=== PATIENT | male | born 1990 | race African-American/Black ===

== ENCOUNTER 2017-01-03 00:03 | Emergency (ER) | payer SELFPAY ==
[2017-01-03 00:07] VITALS: BP 135/64; BMI 33.6
--- NOTE | 2017-01-03 00:43 | DR.GENAD ---
HPI - PCP Primary Care Physician: DIOR - HPI Comment HPI Comment: UPPER LEFT FIRST MOLAR BREAK SEVERAL WEEKS AGO. PAIN SINCE. SEVERE TODAY. FEVER AT HOME. PROBLEM CHEWING. TODAY, LEFT JAW PAIN AND SWELLING ALSO. - Complaint/Symptoms Chief Complaint Doctors Comments: TOOTHACHE TIMES ONE WEEK. Chief Complaint:: PT STATES HE HAS A BAD TOOTHACHE THAT HAS BEEN HURTING FOR A WHILE - Nurses notes reviewed Nurses Notes Review: Yes - Source History Provided: Patient - Mode of Arrival Mode of Arrival: Ambulatory - Timing Onset of Chief Complaint: 12/20/16 Came on: Suddenly - Duration Duration: Constant Duration: Days - Severity Severity: Moderate PMH - PMH Past Medical History: No Past Surgical History: No - Family History History of Family Medical Conditions: No Family Medical History: Diabetes Mellitus, Coronary Artery Disease, Hypertension - Social History Alcohol Use: None Do you use any recreational Drugs:: No Lives With: Family Lives Where: Home - infectious screening In the last 2 months have you had wt loss of >10#?: NO Have you had fever, night sweats or hemotysis?: No Have you traveled outside the country in the last 6 months?: No Isolation: Standard ROS - Review of Systems Constitutional: Fever (AT HOME) Eyes: No Symptoms Reported ENTM: Mouth Pain, Mouth Swelling (SWELLING LEFT UPPER ) Respiratoy: No Symptoms Reported Cardiovascular: No Symptoms Reported Gastrointestinal/Abdominal: No Symptoms Reported Genitourinary: No Symptoms Reported Neurological: No Symptoms Reported Musculoskeletal: No Symptoms Reported Integumentary: No Symptoms Reported Hematologic/Lymphatic: No Symptoms Reported Endocrine: No Symptoms Reported All Other Systems: Reviewed and Negative PE - Vital Signs Vitals: Temperature 98.1 F Pulse Rate 68 Respiratory Rate 20 Blood Pressure 135/64 O2 Sat by Pulse Oximetry 98 - General Limitations: No Limitations General Appearance: Alert - Head Head Exam: Other (LEFT JAW MILDLY SWOLLEN.) - Eyes Eye exam: Normal Appearance - ENT ENT Exam: Normal External Ear Exam External Ear Exam: Normal External Inspection TM/Canal Exam: Bilateral Normal Nose Exam: Normal Nose Exam Mouth Exam: Other (LEFT UPPER FIRST MOLAR INFLAME. GUM RED AND SWOLLEN.) Throat Exam: Normal Inspection - Neck Neck Exam: Trachea Midline - Chest Chest Inspection: Symmetric Chest Wall Rise - Respiratory Respiratory Exam: Normal Lung Sounds Bilat Respiratory Exam: Bilateral Clear to Auscultation - Cardiovascular Cardiovascular Exam: Regular Rate, Normal Rhythm, Normal Heart Sounds - Abdominal Exam Abdominal Exam: Normal Inspection - Extremities Extremities Exam: Normal Inspection - Back Back Exam: Normal Inspection - Neurologic Neurological Exam: Alert, Oriented X3 - Psychiatric Psychiatric Exam: Anxious - Skin Skin Exam: Normal Color [facility] - Differential Diagnosis Differential Diagnosis: TOOTHACHE, GINGIVITIS Course - Treatment Treatment: SEE ORDERS. PO MED IN ED. - Education/Counseling Education/Counseling: Patient, Family, Education Educated On: Treatment, Diagnosis, Needs for Follow Up - Diagnosis Discharge Problem: Pain, dental, Gingivitis - Discharge Plan Disposition: 01 HOME, SELF-CARE Condition: Stable Prescriptions: Acetaminophen W/ Codeine [Tylenol/Codeine #3 300-30 mg] 1 tab PO Q6H PRN #15 tab PRN Reason: Pain Amoxicillin [Amoxil 875 mg] 875 mg PO BID #20 tab Ibuprofen [Motrin Tab 800 mg] 800 mg PO Q8H PRN #20 tab PRN Reason: Pain/Inflammation - Follow ups/Referrals Follow ups/Referrals: NFD,None [Primary Care Provider] - 3 days - Instructions Instructions: Dental Pain, Gingivitis Additional Instructions: RETURN TO ED IF WORSE. FOLLOW UP WITH DENTIST THIS WEEK.
[2017-01-03] MEDS ORDERED: TYLENOL #3 TAB (W/CODEINE) PO ONE ×2 (00:57→01:00)
[2017-01-03] MEDS ORDERED: AMOXIL CAP 500 MG PO ONE ×2 (00:58→01:01)
[2017-01-03] MEDS ORDERED: TORADOL TAB PO ONE ×2 (00:59→01:04)
== END 2017-01-03 01:12 | disposition home or self-care (01) ==
LOC: ER 00:03
DX: K08.89 Other specified disorders of teeth and supporting structures (principal); K05.10 Chronic gingivitis, plaque induced
CPT/HCPCS: 99282

== ENCOUNTER 2017-03-23 23:41 | Emergency (ER) | payer SELFPAY ==
[2017-03-23 23:52] VITALS: BP 142/77; BMI 35.0
[2017-03-24] MEDS ORDERED: TORADOL 60 MG VIAL IM ONE (01:32)
--- NOTE | 2017-03-24 01:33 | DR.GENAD ---
HPI - PCP Primary Care Physician: NFD - HPI Comment HPI Comment: FELL IN SHOWER TODAY AND INJURED RIGHT SHOULDER. INCREASING PAIN SINCE. NO OTHER INJURY REPORTED. - Complaint/Symptoms Chief Complaint Doctors Comments: FELL, RIGHT SHOULDER INJURY. Chief Complaint:: FELL ON RIGHT SHOULDER IN SHOWER HURTS WHEN MOVING AND NOT MOVING - Nurses notes reviewed Nurses Notes Review: Yes - Source History Provided: Patient - Mode of Arrival Mode of Arrival: Ambulatory - Timing Onset of Chief Complaint: 03/23/17 Came on: Suddenly - Duration Duration: Constant Duration: Hours - Severity Severity: Moderate PMH - PMH Past Medical History: No Past Surgical History: No - Family History History of Family Medical Conditions: Yes Family Medical History: Diabetes Mellitus, Cancer, [place], Hypertension Family Medical History Comment: STROKE - Social History Does patient currently use any type of tobacco product: Yes Have you used tobacco products in the last 12 months: Yes Type of Tobacco Use: Cigarettes How many years tobacco product used: 10 Does any household member use tobacco: Yes Alcohol Use: Occasionally Do you use any recreational Drugs:: Yes (MARIJUANA) Lives With: Spouse Lives Where: Home - infectious screening In the last 2 months have you had wt loss of >10#?: NO Have you had fever, night sweats or hemotysis?: No Have you traveled outside the country in the last 6 months?: No Isolation: Standard ROS - Review of Systems Constitutional: No Symptoms Reported Eyes: No Symptoms Reported ENTM: No Symptoms Reported Respiratoy: No Symptoms Reported Cardiovascular: No Symptoms Reported Gastrointestinal/Abdominal: No Symptoms Reported Genitourinary: No Symptoms Reported Neurological: No Symptoms Reported Musculoskeletal: Right, Shoulder Integumentary: No Symptoms Reported Hematologic/Lymphatic: No Symptoms Reported Endocrine: No Symptoms Reported All Other Systems: Reviewed and Negative PE - Vital Signs Vitals: Temperature 98.6 F Pulse Rate [Left Radial] 78 Pulse Rate 87 Respiratory Rate 16 Blood Pressure 142/77 O2 Sat by Pulse Oximetry 98 - General Limitations: No Limitations General Appearance: Alert - Head Head Exam: Normal Inspection - Eyes Eye exam: Normal Appearance - ENT ENT Exam: Normal External Ear Exam External Ear Exam: Normal External Inspection TM/Canal Exam: Bilateral Normal Nose Exam: Normal Nose Exam Mouth Exam: Normal Inspection Throat Exam: Normal Inspection - Neck Neck Exam: Trachea Midline. negative: Tenderness, Meningismus, Lymphadenopathy - Chest Chest Inspection: Symmetric Chest Wall Rise - Respiratory Respiratory Exam: Normal Lung Sounds Bilat Respiratory Exam: Bilateral Clear to Auscultation - Cardiovascular Cardiovascular Exam: Regular Rate, Normal Rhythm - Abdominal Exam Abdominal Exam: Normal Bowel Sounds, Soft. negative: Tenderness - Extremities Extremities Exam: Tenderness (RT SHOULDER), Joint Swelling (RT SHOULDER.). negative: Full ROM (RT SCHOULDER.) - Back Back Exam: Normal Inspection - Neurologic Neurological Exam: Alert, Oriented X3 - Psychiatric Psychiatric Exam: Normal Affect, Normal Mood - Skin Skin Exam: Intact MDM - Additional Information Additional Information Obtained From: Family - Differential Diagnosis Differential Diagnosis: FRACTURE, SPRAIN, STRAIN, CONTUSION RIGHT SHOULDER. Course - Treatment Treatment: SEE ORDERS. TORADOL IM, PAIN IMPROVE. - Education/Counseling Education/Counseling: Patient, Family, Education Educated On: Treatment, Diagnosis, Needs for Follow Up ROR - XRAY XRAY Interpreted by: Radiologist XRAY Findings: REPORT DISCUSS WITH PATIENT. - Diagnosis Discharge Problem: Sprain of right shoulder Qualifiers: Encounter type: initial encounter Shoulder sprain type: unspecified sprain Qualified Code(s): S43.401A - Unspecified sprain of right shoulder joint, initial encounter - Discharge Plan Disposition: 01 HOME, SELF-CARE Condition: Stable Prescriptions: Acetaminophen W/ Codeine [Tylenol/Codeine #3 300-30 mg] 1 tab PO Q6H PRN #15 tab PRN Reason: Pain Ibuprofen [Motrin Tab 800 mg] 800 mg PO Q8H PRN #20 tab PRN Reason: Pain/Inflammation - Follow ups/Referrals Follow ups/Referrals: NFD,None [Primary Care Provider] - 3 days - Instructions Instructions: Shoulder Sprain Additional Instructions: RETUEN TO ED IF WORSE.
[2017-03-24] MEDS ORDERED: TORADOL 60 MG VIAL ONE (01:47)
--- NOTE | 2017-03-24 02:23 | RAD ---
EXAM: Right shoulder x-ray INDICATION: Pain COMPARISION: No priors for comparison TECHNIQUE: Lateral, AP with internal and external rotation, 3 views FINDINGS: No acute fracture or dislocation. The joint spaces are preserved. The soft tissues are normal. No ra diopaque foreign body. The visualize ribs are intact. IMPRESSION: Normal right shoulder x-ray examination Reported By:
== END 2017-03-24 02:55 | disposition home or self-care (01) ==
LOC: ER 23:41
DX: S43.401A Unspecified sprain of right shoulder joint, initial encounter (principal); W19.XXXA Unspecified fall, initial encounter; Y92.9 Unspecified place or not applicable
CPT/HCPCS: 73030; 96372; 99282; J1885